=== PATIENT | female | born 1985 | race Caucasian/White ===

== ENCOUNTER 2022-08-01 05:15 | Inpatient (IN) ==
[2022-08-01] MEDS ORDERED: OXYTOCIN/LR 20 UNIT/1,000 ML BAG IV ONE ×3 (05:22→13:58)
[2022-08-01] MEDS ORDERED: LACTATED RINGERS 250 ML IV ONE (05:22)
[2022-08-01] MEDS ORDERED: TRANEXAMIC ACID 1,000 MG in SODIUM CHLORIDE 0.9% 100 ML IV PRN (05:22)
[2022-08-01] MEDS ORDERED: miSOPROStoL 200 MCG TABLET RECTAL PRN (05:22)
[2022-08-01] MEDS ORDERED: METHYLERGONOVINE 0.2 MG/1 ML AMP IM PRN (05:22)
[2022-08-01] MEDS ORDERED: CARBOPROST TROMETHAMINE 250 MCG/ML AMP IM PRN (05:22)
[2022-08-01] MEDS ORDERED: ONDANSETRON 4 MG/2 ML VIAL IV PRN (05:22)
[2022-08-01] MEDS ORDERED: LACTATED RINGERS 500 ML IV PRN (05:22)
[2022-08-01] MEDS: LACTATED RINGERS 1,000 ML IV SCH ×2 (05:58→07:19)
[2022-08-01 06:21] LABS: Basophils % 0.6 % (0.0-0.8); Eosinophils # 0.1 10*3/uL (0.0-0.87); Hematocrit 33.8 VOL% (35.7-47.0); Hemoglobin 11.1 GM/DL (12.0-16.0); Immature Granulocytes % 1.4 %; Lymphocytes # 2.5 10*3/uL (1.4-4.0); Lymphocytes % 34.7 % (21.3-54.2); Mean Corpuscular HGB Conc 32.8 GM/DL (32-36); Mean Corpuscular Volume 89.4 FL (87-102); Monocytes # 0.6 10*3/uL (0.11-0.8); Monocytes % 8.5 % (1.7-12.7); Neutrophils % 53.8 % (38.7-73.9); Platelet Count 247 T/CUMM (130-400); Red Blood Count 3.78 MC/CUMM (3.8-5.5); Red Cell Distribution Width 13.1 % (9.3-17.3); White Blood Count 7.1 T/CUMM (4-12)
[2022-08-01] MEDS ORDERED: hydrOXYzine HCL 25 MG/1 ML VIAL IM PRN (06:29)
[2022-08-01] MEDS ORDERED: NALOXONE 0.4 MG/ML VIAL IV PRN (06:29)
[2022-08-01] MEDS ORDERED: diphenhydrAMINE 50 MG/1 ML VIAL IV PRN ×2 (06:29)
[2022-08-01] MEDS ORDERED: PROMETHAZINE 25 MG/1 ML VIAL IM PRN (06:29)
[2022-08-01] MEDS ORDERED: ePHEDrine 50 MG/ML VIAL IV PRN (06:29)
[2022-08-01] MEDS ORDERED: CITRIC ACID/SODIUM CITRATE 30 ML UDCUP PO PRN (06:30)
[2022-08-01] MEDS ORDERED: FAMOTIDINE 20 MG/2 ML VIAL IV PRN (06:30)
[2022-08-01] MEDS ORDERED: fentaNYL 2 MCG/ROPIV 0.2% EPID 100 ML EPIDURAL SCH (06:30)
[2022-08-01] MEDS ORDERED: OXYTOCIN/LR 30 UNIT/1,000 ML BAG IV PRN (06:31)
[2022-08-01 06:52] LABS: Alanine Aminotransferase 18 U/L (13-56); Albumin 2.9 G/DL (3.4-5.0); Alkaline Phosphatase 198 U/L (45-117); Aspartate Amino Transferase 14 U/L (0-37); Bilirubin,Total < 0.39 MG/DL (0.20-1.00); Blood Urea Nitrogen 12 MG/DL (7-18); Calcium 8.7 MG/DL (8.5-10.1); Carbon Dioxide 21 MMOL/L (21-32); Chloride 110 MMOL/L (98-107); Glucose 79 MG/DL (74-106); Osmolality,Calculated 277.4 MOS/KG (273-304); Potassium 3.7 MMOL/L (3.5-5.1); Sodium 140 MMOL/L (136-145); Total Protein 6.4 G/DL (6.4-8.2)
[2022-08-01 09:03] LABS: Mucus,Urine Occasional /LPF (Occasional); RBC,Urine 5 /HPF (0-4); Squamous Epithelial Cell,Urine Occasional /HPF (0-10)
[2022-08-01 09:06] LABS: Urine Appearance Clear (Clear); Urine Color Yellow (Yellow)
[2022-08-01 09:07] LABS: Bilirubin,Urine Negative (Negative); Blood, Urine Trace mg/dL (Negative); Glucose,Urine (UA) Negative (Negative); Ketones,Urine Negative (Negative); Nitrite,Urine Negative (Negative); Protein,Urine Negative (Negative); Urine Urobilinogen 0.2 eU/dL (<2.0)
[2022-08-01] MEDS ORDERED: miSOPROStoL 200 MCG TABLET ONE (09:18)
[2022-08-01] MEDS ORDERED: CARBOPROST TROMETHAMINE 250 MCG/ML AMP IM ONE (09:20)
[2022-08-01] MEDS ORDERED: METHYLERGONOVINE 0.2 MG/1 ML AMP ONE (09:20)
[2022-08-01 10:41] LABS: Cord Arterial Blood HCO3 18.9 MMOL/L
[2022-08-01 10:43] LABS: Cord Venous Blood HCO3 20.7 MMOL/L; Cord Venous Blood PO2 27.9
[2022-08-01] MEDS ORDERED: DIPH/TET/ACEL PERT BOOSTER VACCINE 0.5 ML VIAL IM ONE (13:58)
[2022-08-01] MEDS ORDERED: BISACODYL 10 MG SUPP RECTAL PRN (13:58)
[2022-08-01] MEDS ORDERED: RHO(D) IMMUNE GLOBULIN 300 MCG SYRINGE IM ONE (13:58)
[2022-08-01] MEDS ORDERED: oxyCODONE/ACETAMINOPHEN 5-325 MG TABLET PO PRN ×2 (13:58)
[2022-08-01] MEDS ORDERED: HYDROCORTISONE 2.5% RECTAL CREAM 30 GM TUBE TOP PRN (13:58)
[2022-08-01] MEDS ORDERED: WITCH HAZEL PADS 100/JAR TOP PRN (13:58)
[2022-08-01] MEDS ORDERED: BENZOCAINE 20%/MENTHOL 0.5% SPRAY 56 GM CAN TOP PRN (13:58)
[2022-08-01] MEDS ORDERED: MEASLES/MUMPS/RUBELLA VACCINE 0.5 ML VIAL SUBCUT ONE (13:58)
[2022-08-01] MEDS ORDERED: LANOLIN 50% CREAM 0.3 OZ TUBE TOP PRN (13:58)
[2022-08-01] MEDS ORDERED: ACETAMINOPHEN 325 MG TABLET PO PRN (13:58)
[2022-08-01] MEDS: IBUPROFEN 800 MG TABLET PO PRN (17:40)
[2022-08-02] MEDS: IBUPROFEN 800 MG TABLET PO PRN ×2 (04:29→18:23)
[2022-08-02 06:29] LABS: Basophils % 0.2 % (0.0-0.8); Eosinophils # 0.2 10*3/uL (0.0-0.87); Eosinophils % 2.1 % (0.00-10.9); Hematocrit 29.1 VOL% (35.7-47.0); Hemoglobin 9.4 GM/DL (12.0-16.0); Immature Granulocytes Absolute 0.09 #; Lymphocytes # 2.7 10*3/uL (1.4-4.0); Lymphocytes % 29.2 % (21.3-54.2); Mean Corpuscular HGB Conc 32.3 GM/DL (32-36); Mean Corpuscular Volume 90.4 FL (87-102); Mean Platelet Volume 10.9 FL (9.6-12.0); Monocytes # 0.5 10*3/uL (0.11-0.8); Monocytes % 5.6 % (1.7-12.7); Neutrophils % 61.9 % (38.7-73.9); Platelet Count 219 T/CUMM (130-400); Red Blood Count 3.22 MC/CUMM (3.8-5.5); Red Cell Distribution Width 13.1 % (9.3-17.3); White Blood Count 9.2 T/CUMM (4-12)
[2022-08-02] MEDS: DOCUSATE SODIUM 100 MG CAPSULE PO SCH ×2 (09:25→20:41)
[2022-08-02] MEDS ORDERED: RHO(D) IMMUNE GLOBULIN 300 MCG SYRINGE IM ONE ×2 (10:46→18:00)
[2022-08-03 08:52] VITALS: BP 108/67
[2022-08-03] MEDS: DOCUSATE SODIUM 100 MG CAPSULE PO SCH (09:52)
== END 2022-08-03 12:25 | disposition home or self-care (01) | DRG 807 ==
LOC: N.LD 05:15 → N.OB 13:00
PROVIDERS: ADMIT Obstetrics & Gynecology; ATTEND Obstetrics & Gynecology